=== PATIENT | female | born 1990 | race Hispanic/Latino ===

== ENCOUNTER 2017-03-06 15:53 | Emergency (ER) | payer OTHER ==
[2017-03-06 15:58] VITALS: O2SAT 98
[2017-03-06] MEDS ORDERED: Bacitracin 500 Units/gm Oint Foilpak UD TOP ONE (16:17)
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
[2017-03-06] MEDS ORDERED: Bacitracin 500 Units/gm Oint Foilpak UD ONE (16:35)
[2017-03-06 17:33] VITALS: BP 103/68; PULSE 74; RESP 18; TEMP 98.2
== END 2017-03-06 17:33 | disposition home or self-care (01) ==
LOC: C.ER 15:53
DX: T20.16XA Burn of first degree of forehead and cheek, initial encounter (principal); X08.8XXA Exposure to other specified smoke, fire and flames, initial encounter